=== PATIENT | female | born 1995 ===

== ENCOUNTER 2023-05-17 11:43 | Inpatient (IN) | payer MEDICAID ==
[~2023-05-17] VITALS: Ht 157.5 cm; Wt 96.4 kg
[2023-05-27] VITALS (30 sets, daily range): BP systolic 90–159; BP diastolic 54–92; PULSE 62–97; TEMP 97.6–98.9
--- NOTE | 2023-05-27 05:39 | NUR ---
Ambulatory to unit for scheduled repeat C/S, accompanied by significant other.
[2023-05-27 06:23] LABS: BASO % 0.3 % (0.0-2.0); EOS # 0.1 K/mm3 (0.0-0.7); EOS % 1.2 % (0.0-4.0); GRAN # 4.3 K/mm3 (1.4-6.5); GRAN % 59.1 % (42.2-75.2); HEMOGLOBIN 11.1 g/dl (12.5-16.0); LYMPH # 2.2 K/mm3 (1.2-3.4); LYMPH % 29.9 % (20.0-51.0); MEAN CELL VOLUME 82 fl (80.0-100.0); MEAN CORPUSCULAR HEMOGLOBIN 27 pg (27-31); MEAN CORPUSCULAR HGB CONC 33 g/dl (33.0-37.0); MEAN PLATELET VOLUME 10.9 fl (7.4-10.4); MONO # 0.7 K/mm3 (0.1-0.6); MONO % 9.2 % (1.7-9.3); PLATELET COUNT 204 K/mm3 (130-400); RED BLOOD COUNT 4.09 M/mm3 (4.10-5.30); REDCELL DISTRIBUTION WIDTH-CV 13.9 % (11.5-14.5)
[2023-05-27 06:28] LABS: HEMATOCRIT 33.5 % (37.0-47.0)
[2023-05-27] MEDS ORDERED: PRENATAL TABLET PO (06:53)
[2023-05-27] MEDS ORDERED: PRILOSEC 20MG20 MG PO (06:54)
[2023-05-27] MEDS ORDERED: ZOLOFT 50MG50 MG PO (06:55)
[2023-05-27] MEDS ORDERED: VITAMIN B650 MG (06:56)
[2023-05-27] MEDS ORDERED: MOTRIN 800800 MG/TAB PO (08:27)
[2023-05-27] MEDS ORDERED: PERCOCET 325 MG1 TA2 PO (08:27)
--- NOTE | 2023-05-27 10:27 | NUR ---
1027- PT FUNDAL RUB HAD POOLING BLOOD WITH BLEEDING ON CHUX UNDER HER LEGS AND BOTTOM. REMOVED AND WEIGHED CHUX PAD. PAD WEIGHED 193 BRINGING TOTAL QBL TO 586. 1042- CALLED DR SOLO AND LEFT MESSAGE FOR HER THROUGH STAFF. 1046- DR SOLO CALLED BACK AND WAS UPDATED ABOUT PT STATUS, AND ASKED IF SHE WANTED TO GIVE HER SOMETHING TO TREAT. DR SOLO SAID TO WATCH KEEP WATCHING HER, 586 WAS NOT A HEMORRAGE FOR A . THIS RN WENT BACK TO BEDSIDE TO DO ANOTHER FUNDAL CHECK. 1050- PT HAD A VERY LARGE CLOT WITH FUNDAL RUB. CHARGE WAS CALLED IN TO ASSESS. 1059- ATTEMPTED TO CALL DR SOLO X2, BUT WENT TO VOICE MAIL. 1100- CALLED DR FERNANDEZ, WHO ORDERED METHERGIN, OXYTOCIN, AND H&H AND HOPED DR SOLO WOULD CALL BACK SOON. BACK AT BEDSIDE PT AGAIN HAD LARGE CLOTS WITH FUNDAL RUB, BP WAS 90/54. 1111- CHARGE CALLED DR SOLO AND REQUESTED SHE ASSES AT BEDSIDE. 1113- ANTON WAS ALSO CALLED IN, AND SHE SAID SHE WOULD BE RIGHT HERE. 1120- DR SOLO ARRIVED AT BEDSIDE TO ASSESS PT. SHE BEGAN DOING FUNDAL RUBS AND TRANVAGINALLY REMOVING CLOTS FROM THE PT'S UTERUS SINCE SHE WAS APPROX [address] SOLO ORDERED 800 CYTOTEC, AND HEMABATE WHILE SHE CONTINUED TO REMOVE CLOTS AND FIRM UP THE PT'S UTERUS. 1125- ANTON AT BEDSIDE. ANTON WORKED ON GETTING A SECOND IV GOING FOR THE 2 UNITS OF BLOOD THAT DR SOLO ORDERED. LR BOLUS GOING. DR SOLO ESTIMATED THAT PT LOST A TOTAL OF 2 LITERS OF BLOOD. 1215- DR SOLO SAID THAT PT SHOULD REMAIN NPO FOR NOW. IF HER BLEEDING REMAINS SLOW THAT SHE CAN EAT AFTER 1400. DR SOLO ASKED FOR AN H&H 2 HOURS AFTER LAST UNIT OF BLOOD IS COMPLETE.
[2023-05-27 11:21] LABS: TRICYCLIC ANTIDEPRESS URINE NEGATIVE
[2023-05-27 11:51] LABS: HEMATOCRIT 29.1 % (37.0-47.0); HEMOGLOBIN 9.5 g/dl (12.5-16.0)
--- NOTE | 2023-05-27 18:20 | NUR ---
This RN documents remaining QBL for previous shift as reported
--- NOTE | 2023-05-27 21:35 | NUR ---
Pivot transfer to wheelchair. No light-headed, or dizziness. Able to lock knees. To NSY via wheelchair to hold baby for the first time.
--- NOTE | 2023-05-27 22:20 | NUR ---
Pt back to room via wheelchair. Back to bed without difficulty. Pt reports shoulder pain stating "I know it's normal, but it seems so soon" Mylicon given, warm blankets to shoulders. Lights dimmed, encouraged to rest.
[2023-05-27 22:24] LABS: BASO % 0.2 % (0.0-2.0); GRAN # 10.7 K/mm3 (1.4-6.5); GRAN % 80.2 % (42.2-75.2); HEMOGLOBIN 10.6 g/dl (12.5-16.0); LYMPH # 1.4 K/mm3 (1.2-3.4); LYMPH % 10.6 % (20.0-51.0); MEAN CELL VOLUME 81 fl (80.0-100.0); MEAN CORPUSCULAR HEMOGLOBIN 28 pg (27-31); MEAN CORPUSCULAR HGB CONC 35 g/dl (33.0-37.0); MEAN PLATELET VOLUME 10.6 fl (7.4-10.4); MONO # 1.1 K/mm3 (0.1-0.6); MONO % 8.5 % (1.7-9.3); PLATELET COUNT 150 K/mm3 (130-400); RED BLOOD COUNT 3.79 M/mm3 (4.10-5.30); REDCELL DISTRIBUTION WIDTH-CV 13.9 % (11.5-14.5)
[2023-05-27 22:27] LABS: HEMATOCRIT 30.7 % (37.0-47.0)
[2023-05-28 02:30] VITALS: BP 112/58; PULSE 74
[2023-05-28 07:20] VITALS: BP 121/66; PULSE 96; TEMP 98.8
--- NOTE | 2023-05-28 09:13 | NUR ---
Initial visit; Patient resting, Ecology Professor left card offering congratulations and God's blessings for the of their son and information regarding the availability of Spiritual Care at our hospital.
--- NOTE | 2023-05-28 13:20 | NUR ---
Ambulates to the bathroom. Voids moderate amount of urine. Michelle-care done by patient. Ambulates to the nursery to see baby. Assist to rocking chair, Sondra travel sales consultant works with patient.
--- NOTE | 2023-05-28 13:28 | NUR ---
Roxycodone 5 mg given per request and as ordered.
[2023-05-28 16:51] VITALS: BP 105/59; PULSE 77; TEMP 97.9
[2023-05-28 21:15] VITALS: BP 128/70; PULSE 89; TEMP 98.3
[2023-05-29 03:30] VITALS: BP 121/59; PULSE 77; TEMP 99
[2023-05-29 07:55] VITALS: BP 120/67; PULSE 79; TEMP 98.3
== END 2023-05-29 16:35 | disposition home or self-care (01) | DRG 787 ==
LOC: OB 05-27 05:27
PROVIDERS: ADMIT Obstetrics & Gynecology
PROC: 10D00Z1 Extraction of Products of Conception, Low, Open Approach (ICD-10-PCS; principal; 2023-05-27)
PROC: 30233N1 Transfusion of Nonautologous Red Blood Cells into Peripheral Vein, Percutaneous Approach (ICD-10-PCS; 2023-05-27)
DX: O34.211 Maternal care for low transverse scar from previous cesarean delivery (principal); O72.1 Other immediate postpartum hemorrhage; O99.02 Anemia complicating childbirth; Z3A.39 39 weeks gestation of pregnancy; K21.9 Gastro-esophageal reflux disease without esophagitis; O99.214 Obesity complicating childbirth; O99.62 Diseases of the digestive system complicating childbirth; O77.0 Labor and delivery complicated by meconium in amniotic fluid; Z37.0 Single live birth; Z23 Encounter for immunization; Z87.442 Personal history of urinary calculi; Z87.891 Personal history of nicotine dependence
CPT/HCPCS: J0665; J0690; J1100; J1885; J2371; J2405; J2550; J2590; J2765; J3010; J7120; P9016